=== PATIENT | female | born 1955 | race Caucasian/White ===

== ENCOUNTER 2021-05-27 10:30 | Inpatient (IN) | payer MEDICAID ==
[~2021-05-27] VITALS: Ht 162.6 cm; Wt 63.6 kg
[2021-05-27] MEDS ORDERED: LISI-663 PO (10:42)
[2021-05-27] MEDS ORDERED: METH2.5 PO (10:44)
[2021-05-27] MEDS ORDERED: MORPHINE SULFATE 2 MG/ML SYRINGE IVP ONE (11:00)
[2021-05-27] MEDS ORDERED: ONDANSETRON HCL 4 MG/2 ML VIAL IVP ONE (11:00)
[2021-05-27] MEDS ORDERED: SODIUM CHLORIDE 0.9% 500 ML IV ONE (11:00)
[2021-05-27] MEDS ORDERED: ADAL40PE5 SQ (11:04)
[2021-05-27] MEDS ORDERED: IOHEXOL 350 MG/ML 150 ML VIAL ONE (11:12)
[2021-05-27] MEDS ORDERED: SODIUM CHLORIDE 0.9% 100 ML ONE (11:13)
[2021-05-27 11:16] LABS: BASOPHILS % (AUTO) 0.3 % (0.0-2.0); EOSINOPHILS % (AUTO) 0.2 % (1.0-6.0); HEMATOCRIT 44.2 % (36-46); LYMPHOCYTES # (AUTO) 1.9 K/uL (1.0-4.8); MEAN CORPUSCULAR HEMOGLOBIN 29.9 pg (26.0-34.0); MEAN CORPUSCULAR VOLUME 88 fL (80-100); MONOCYTES # (AUTO) 0.6 K/uL (0.1-1.0); MONOCYTES % (AUTO) 5.1 % (2.0-9.0); NEUTROPHILS # (AUTO) 9.3 K/uL (1.8-7.7); NEUTROPHILS % (AUTO) 78.4 % (40.0-70.0); PLATELET COUNT (AUTO) 272 K/uL (150-450); RED BLOOD CELL COUNT(AUTO) 5.02 MIL/uL (4.00-5.20); RED CELL DISTRIBUTION WIDTH 13.6 % (11.5-14.5)
[2021-05-27 11:31] LABS: ALANINE AMINOTRANSFERASE 38 U/L (12-78); ALBUMIN 3.9 g/dL (3.4-5.0); ALKALINE PHOSPHATASE 70 U/L (46-116); ANION GAP 8 mmol/L (8-16); ASPARTATE AMINOTRANSFERASE 27 U/L (15-37); CALCIUM, TOTAL 9.1 mg/dL (8.8-10.5); CARBON DIOXIDE 28 mmol/L (22-29); CHLORIDE 97 mmol/L (98-107); CREATININE 0.79 mg/dL (0.60-1.30); GLOMERULAR FILTR. RATE CALC > 60 mL/min (>60); GLUCOSE,RANDOM 124 mg/dL (70-110); LIPASE 66 U/L (73-393); POTASSIUM 3.8 mmol/L (3.5-5.1); SODIUM SERUM 133 mmol/L (136-145); TOTAL PROTEIN, SERUM 7.9 g/dL (6.4-8.2); UREA NITROGEN, BLOOD 10 mg/dL (7-18)
[2021-05-27 12:57] LABS: APPEARANCE,URINE CLEAR (CLEAR); BILIRUBIN,URINE NEGATIVE (NEGATIVE); GLUCOSE, URINE (UA) NEGATIVE (NEGATIVE); KETONES,URINE TRACE mg/dL (NEGATIVE); LEUKOCYTE ESTERASE ,URINE TRACE (NEGATIVE); NITRATE,URINE NEGATIVE (NEGATIVE); OCCULT BLOOD,URINE NEGATIVE (NEGATIVE); PROTEIN,URINE NEGATIVE (NEGATIVE); UROBILINOGEN,URINE 0.2 mg/dL (<=1.0)
[2021-05-27 13:14] LABS: BACTERIA,URINE None Seen /HPF (None Seen); RBC,URINE None Seen /HPF (0-2); SQUAMOUS EPITHELIAL CELL,UR Few /LPF (None Seen); WBC,URINE 0-2 /HPF (0-5)
[2021-05-27] MEDS ORDERED: 0.9% SODIUM CHLORIDE 10 ML SYRINGE IVP PRN (13:15)
[2021-05-27] MEDS ORDERED: ONDANSETRON HCL 4 MG/2 ML VIAL IVP PRN ×2 (13:15→17:30)
[2021-05-27] MEDS ORDERED: ACETAMINOPHEN 325 MG TABLET PO PRN ×2 (13:15→17:30)
[2021-05-27] MEDS ORDERED: RINGERS SOLUTION,LACTATED 1,000 ML IV ONE ×2 (13:47→15:22)
[2021-05-27] MEDS ORDERED: BUPIVACAINE 0.25%/EPI 1:200,000/PF 10 ML VIAL ONE ×2 (14:02)
[2021-05-27] MEDS ORDERED: SODIUM CHLORIDE 0.9% 0 ML ONE ×2 (14:03→14:04)
[2021-05-27] MEDS ORDERED: BACITRACIN 50,000 UNITS/VIAL ONE (14:03)
[2021-05-27 14:19] LABS: COVID AG,FIA SOURCE NASOPHARYNGEAL
[2021-05-27] MEDS ORDERED: SUGAMMADEX SODIUM 200 MG/2 ML VIAL IVP ONE (14:41)
[2021-05-27] MEDS ORDERED: ACETAMINOPHEN 1000 MG/ISO-OSM 100 ML IV ONE (14:41)
[2021-05-27] MEDS ORDERED: HYDROmorphone 2 MG/ML VIAL IVP PRN (15:00)
[2021-05-27] MEDS ORDERED: FentaNYL CITRATE PF 100 MCG/2 ML VIAL IVP PRN (15:00)
[2021-05-27] MEDS ORDERED: BUPIVACAINE HCL/PF 0.5% 30 ML VIAL ONE (15:17)
[2021-05-27 16:45] VITALS: BP 121/69
[2021-05-27] MEDS ORDERED: ZOLPIDEM TARTRATE 5 MG TABLET PO PRN (17:30)
[2021-05-27] MEDS ORDERED: HYDROCODONE/ACETAMINOPHEN 5-325 MG TABLET PO PRN (17:30)
[2021-05-27] MEDS ORDERED: MAGNESIUM HYDROXIDE SUSPENSION 30 ML UDCUP PO PRN (17:30)
[2021-05-27] MEDS ORDERED: BISACODYL 10 MG RECTAL RECTAL SUPPOSITORY PR PRN (17:30)
[2021-05-27] MEDS ORDERED: MORPHINE SULFATE 2 MG/ML SYRINGE IVP PRN (17:30)
[2021-05-27] MEDS: SODIUM CHLORIDE 0.9% 1,000 ML IV SCH (17:52)
[2021-05-27] MEDS ORDERED: PNEUMOCOCCAL VACCINE POLYVALENT 0.5 ML VIAL [PPSV23] IM. ONE (19:15)
[2021-05-27 19:40] VITALS: BP 108/55
[2021-05-27] MEDS: OXYGEN THERAPY IH SCH (20:00)
[2021-05-27] MEDS: DOCUSATE SODIUM 100 MG CAPSULE PO SCH (23:49)
[2021-05-28] VITALS: BP 112/58
[2021-05-28] MEDS: HEPARIN SODIUM,PORCINE 5,000 UNITS/ML VIAL SQ SCH ×2 (00:31→08:14)
[2021-05-28 04:00] VITALS: BP 96/58
[2021-05-28] MEDS ORDERED: ONDANSETRON HCL 4 MG/2 ML VIAL IVP ONE (05:45)
[2021-05-28] MEDS ORDERED: FentaNYL CITRATE PF 100 MCG/2 ML VIAL IVP ONE (05:45)
[2021-05-28] MEDS ORDERED: LIDOCAINE/PF 2% 5 ML VIAL IM ONE (05:45)
[2021-05-28] MEDS ORDERED: SUGAMMADEX SODIUM 200 MG/2 ML VIAL IVP ONE (05:45)
[2021-05-28] MEDS ORDERED: MIDAZOLAM HCL 2 MG/2 ML VIAL IVP ONE (05:45)
[2021-05-28] MEDS ORDERED: PROPOFOL 1% 20 ML VIAL IVP ONE (05:45)
[2021-05-28] MEDS ORDERED: DEXAMETHASONE SOD PHOS 4 MG/ML VIAL IVP ONE (05:45)
[2021-05-28] MEDS ORDERED: ACETAMINOPHEN/ISO-OSM 1000 MG/100 ML BOTTLE IV ONE (05:45)
[2021-05-28] MEDS ORDERED: ROCURONIUM BROMIDE 10 MG/ML 5 ML VIAL IVP ONE (05:45)
[2021-05-28 07:51] VITALS: BP 101/54
[2021-05-28] MEDS: OXYGEN THERAPY IH SCH (08:00)
[2021-05-28] MEDS: DOCUSATE SODIUM 100 MG CAPSULE PO SCH (08:14)
[2021-05-28 08:23] LABS: BASOPHILS % (AUTO) 0.1 % (0.0-2.0); EOSINOPHILS % (AUTO) 0.1 % (1.0-6.0); HEMATOCRIT 37.7 % (36-46); HEMOGLOBIN 12.4 g/dL (12.0-16.0); LYMPHOCYTES # (AUTO) 1.9 K/uL (1.0-4.8); LYMPHOCYTES % (AUTO) 15.7 % (22.0-44.0); MEAN CORPUSCULAR HEMOGLOBIN 29.8 pg (26.0-34.0); MEAN CORPUSCULAR HGB CONC 32.9 G/dL (31.0-37.0); MEAN CORPUSCULAR VOLUME 91 fL (80-100); MONOCYTES # (AUTO) 0.6 K/uL (0.1-1.0); MONOCYTES % (AUTO) 5.1 % (2.0-9.0); NEUTROPHILS # (AUTO) 9.8 K/uL (1.8-7.7); PLATELET COUNT (AUTO) 224 K/uL (150-450); RED BLOOD CELL COUNT(AUTO) 4.16 MIL/uL (4.00-5.20)
[2021-05-28] MEDS: SODIUM CHLORIDE 0.9% 1,000 ML IV SCH (08:39)
[2021-05-28] MEDS ORDERED: PANTOPRAZOLE SODIUM 40 MG DR TABLET PO SCH (09:00)
[2021-05-28 09:31] LABS: ALANINE AMINOTRANSFERASE 29 U/L (12-78); ALBUMIN 2.9 g/dL (3.4-5.0); ALKALINE PHOSPHATASE 53 U/L (46-116); ANION GAP 4 mmol/L (8-16); ASPARTATE AMINOTRANSFERASE 18 U/L (15-37); BILIRUBIN,TOTAL 0.7 mg/dL (0.1-1.0); CALCIUM, TOTAL 7.8 mg/dL (8.8-10.5); CARBON DIOXIDE 26 mmol/L (22-29); CHLORIDE 107 mmol/L (98-107); GLOMERULAR FILTR. RATE CALC > 60 mL/min (>60); GLUCOSE,RANDOM 102 mg/dL (70-110); POTASSIUM 4.3 mmol/L (3.5-5.1); SODIUM SERUM 137 mmol/L (136-145); TOTAL PROTEIN, SERUM 6.3 g/dL (6.4-8.2); UREA NITROGEN, BLOOD 10 mg/dL (7-18)
== END 2021-05-28 14:20 | disposition home or self-care (01) | DRG 227 ==
LOC: EMS 10:30 → 6N 13:55
PROVIDERS: ADMIT Internal Medicine; ATTEND Internal Medicine
PROC: 0WUF0JZ Supplement Abdominal Wall with Synthetic Substitute, Open Approach (ICD-10-PCS; principal; 2021-05-27 14:15)
DX: K43.6 Other and unspecified ventral hernia with obstruction, without gangrene (principal); R65.10 Systemic inflammatory response syndrome (SIRS) of non-infectious origin without acute organ dysfunction; Z90.710 Acquired absence of both cervix and uterus; I10 Essential (primary) hypertension; Z20.822 Contact with and (suspected) exposure to COVID-19; M19.90 Unspecified osteoarthritis, unspecified site; Z79.899 Other long term (current) drug therapy
CPT/HCPCS: 74177; 80053; 81001; 83690; 85025; 87081; 88302; 99285; J0131; J0690; J1100; J1644; J2250; J2270; J2405; J2704; J3010; J3490; J7030; J7040; J7050; J7120; Q9967